=== PATIENT | female | born 1965 | race Caucasian/White ===

== ENCOUNTER 2016-07-26 11:46 | Day surgery (SDC) | payer OTHER ==
[2016-07-26] MEDS ORDERED: LACTATED RINGERS 1,000 ML IV ONE (11:56)
[2016-07-26] MEDS ORDERED: fentaNYL 250 MCG/5 ML VIAL IVP ONE (13:18)
[2016-07-26] MEDS ORDERED: MIDAZOLAM 2 MG/2 ML VIAL IVP ONE (13:18)
== END 2016-07-26 11:47 | disposition home or self-care (01) ==
PROC: 0DB68ZX Excision of Stomach, Via Natural or Artificial Opening Endoscopic, Diagnostic (ICD-10-PCS; principal; 2016-07-26 12:45)
DX: K92.0 Hematemesis (principal); K29.50 Unspecified chronic gastritis without bleeding; K21.9 Gastro-esophageal reflux disease without esophagitis; K44.9 Diaphragmatic hernia without obstruction or gangrene; E66.9 Obesity, unspecified; Z68.33 Body mass index [BMI] 33.0-33.9, adult; Z88.5 Allergy status to narcotic agent
CPT/HCPCS: 43239; J3010; J7120

== ENCOUNTER 2016-12-10 13:52 | Outpatient (CLI) | payer OTHER ==
--- NOTE | 2016-12-11 17:18 | Mammography Report ---
DIGITAL SCREENING MAMMOGRAM: 12/10/2016 CLINICAL INDICATION: A 51-year-old for screening. COMPARISON: 03/2012, 01/2008. TECHNIQUE: Routine CC and MLO projections were obtained of the breasts. FINDINGS: Parenchymal tissue within the breasts is predominantly fatty replaced. There are no domin ant masses, suspicious microcalcifications, or secondary signs of malignancy. In comparison to the p revious studies, there are no significant changes. IMPRESSION: NO MAMMOGRAPHIC EVIDENCE OF MALIGNANCY. NO SIGNIFICANT INTERVAL CHANGES. RECOMMENDATION: Screening mammography is recommended annually. BIRADS category 1 - negative. STANDARD QUALIFYING STATEMENTS 1. This examination was reviewed with the aid of Computed-Aided Detection (CAD). 2. A negative or benign imaging report should not delay biopsy if clinically suspicious findings are present. Consider surgical consultation if warranted. More than 5% of cancers are not identified b y imaging. 3. Dense breasts may obscure an underlying neoplasm. JOB #: [id number] EXT JOB #:[id number]
== END 2016-12-10 13:53 | disposition home or self-care (01) ==
LOC: DI.S 13:52
PROVIDERS: ATTEND Internal Medicine
DX: Z12.31 Encounter for screening mammogram for malignant neoplasm of breast (principal)
CPT/HCPCS: 77067

== ENCOUNTER 2017-10-29 12:37 | Outpatient (CLI) | payer OTHER ==
[2017-10-29 17:50] LABS: BASOPHILS % (AUTO) 0.2 %; EOSINOPHILS # (AUTO) 0.1 10^3/uL (0.0-0.7); EOSINOPHILS % (AUTO) 1.3 %; HGB - HEMOGLOBIN 14.2 g/dL (12.0-16.0); LYMPHOCYTES # (AUTO) 1.6 10^3/uL (1.5-3.5); LYMPHOCYTES % (AUTO) 37.7 %; MEAN CORPUSCULAR HEMOGLOBIN 30.7 pg (27.0-31.0); MEAN CORPUSCULAR HGB CONC 33.3 g/dL (32.0-36.0); MEAN CORPUSCULAR VOLUME 92.2 fL (81.0-99.0); MEAN PLATELET VOLUME 8.7 fL (7.9-10.8); MONOCYTES # (AUTO) 0.3 10^3/uL (0.0-1.0); MONOCYTES % (AUTO) 7.1 %; NEUTROPHILS # (AUTO) 2.2 10^3/uL (1.5-6.6); NEUTROPHILS % (AUTO) 53.7 %; PLT - PLATELET COUNT 238 10^3/uL (130-450); RED BLOOD COUNT 4.62 10^6/uL (4.20-5.40); RED CELL DISTRIBUTION WIDTH 13.4 % (12.0-15.0); WHITE BLOOD COUNT 4.1 x10^3/uL (4.8-10.8)
[2017-10-29 17:56] LABS: ALBUMIN/GLOBULIN RATIO 1.3 (1.0-2.2); BILIRUBIN,TOTAL 0.8 mg/dL (0.2-1.0); CALCIUM 8.9 mg/dL (8.5-10.3); CREATININE 0.9 mg/dL (0.4-1.0); TOTAL PROTEIN 7.2 g/dL (6.7-8.2)
[2017-10-29 18:07] LABS: THYROID STIMULATING HORMONE 0.76 uIU/mL (0.34-5.60)
[2017-10-29 18:40] LABS: HB2 TOTAL 15.5 g/dL; HEMOGLOBIN A1C 0.49 g/dL
== END 2017-10-29 12:38 | disposition home or self-care (01) ==
LOC: LAB.F 12:37
PROVIDERS: ATTEND Internal Medicine
DX: R53.83 Other fatigue (principal); R35.0 Frequency of micturition; R30.0 Dysuria; Z79.899 Other long term (current) drug therapy; Z12.11 Encounter for screening for malignant neoplasm of colon; Z12.12 Encounter for screening for malignant neoplasm of rectum
CPT/HCPCS: 36415; 80053; 82607; 83036; 84443; 85025

== ENCOUNTER 2019-06-24 10:54 | Outpatient (CLI) | payer OTHER ==
[2019-06-24 17:19] LABS: BASOPHILS % (AUTO) 0.8 %; EOSINOPHILS # (AUTO) 0.1 10^3/uL (0.0-0.7); EOSINOPHILS % (AUTO) 1.4 %; HGB - HEMOGLOBIN 13.4 g/dL (12.0-16.0); LYMPHOCYTES # (AUTO) 1.7 10^3/uL (1.5-3.5); LYMPHOCYTES % (AUTO) 47.1 %; MEAN CORPUSCULAR HEMOGLOBIN 28.8 pg (27.0-31.0); MEAN CORPUSCULAR HGB CONC 31.2 g/dL (32.0-36.0); MEAN CORPUSCULAR VOLUME 92.5 fL (81.0-99.0); MEAN PLATELET VOLUME 10.9 fL (7.9-10.8); MONOCYTES # (AUTO) 0.2 10^3/uL (0.0-1.0); MONOCYTES % (AUTO) 6.5 %; NEUTROPHILS # (AUTO) 1.6 10^3/uL (1.5-6.6); NEUTROPHILS % (AUTO) 43.9 %; PLT - PLATELET COUNT 237 10^3/uL (130-450); RED BLOOD COUNT 4.65 10^6/uL (4.20-5.40); RED CELL DISTRIBUTION WIDTH 12.5 % (12.0-15.0); WHITE BLOOD COUNT 3.7 x10^3/uL (4.8-10.8)
[2019-06-24 17:39] LABS: ALBUMIN 4.4 g/dL (3.2-5.5); ALBUMIN/GLOBULIN RATIO 1.6 (1.0-2.2); ALKALINE PHOSPHATASE 80 IU/L (42-121); ALT ALANINE AMINOTRANSFERASE 33 IU/L (10-60); AST ASPARTATE AMINOTRANSFERASE 27 IU/L (10-42); BILIRUBIN,TOTAL 0.7 mg/dL (0.2-1.0); BUN - BLOOD UREA NITROGEN 12 mg/dL (6-20); CALCIUM 9.1 mg/dL (8.5-10.3); CARBON DIOXIDE - CO2 27 mmol/L (21-32); CHLORIDE 107 mmol/L (101-111); CHOLESTEROL 244 mg/dL; GFR - MDRD 57 (>89); GLUCOSE 97 mg/dL (70-100); HDL CHOLESTEROL 61 mg/dL; LDL CHOLESTEROL,CALCULATED 163 mg/dL; LDL/HDL RATIO 2.7 (<4.4); SODIUM 140 mmol/L (135-145); TOTAL PROTEIN 7.2 g/dL (6.7-8.2); VLDL CHOLESTEROL 20 mg/dL
== END 2019-06-24 10:55 | disposition home or self-care (01) ==
LOC: LAB.S 10:54
PROVIDERS: ATTEND Nurse Practitioner
DX: K92.0 Hematemesis (principal); E78.5 Hyperlipidemia, unspecified; K21.9 Gastro-esophageal reflux disease without esophagitis; J45.909 Unspecified asthma, uncomplicated
CPT/HCPCS: 36415; 80053; 80061; 83721; 84443; 85025

== ENCOUNTER 2019-06-25 10:57 | Outpatient (CLI) | payer OTHER ==
--- NOTE | 2019-06-26 09:13 | Mammography Report ---
Reason: ROUTINE MAMMO Procedure Date: 06/25/2019 Accession Number: [id number] / [id number] Procedure: MGS - Screening Mammo Dig Bilat CPT Code: Final Report FULL RESULT: EXAM: Screening Mammo Dig Bilat DATE: 06/25/2019 11:12 AM CLINICAL HISTORY: Screening encounter. Family history of breast cancer in a maternal aunt at the age of 55. TECHNIQUE: (B) - Bilateral CC and MLO views were obtained. COMPARISON: 12/10/2016 and 04/10/2012. PARENCHYMAL PATTERN: (A) - The breast(s) demonstrate(s) scattered fibroglandular densities. FINDINGS: There are no suspicious masses, calcifications, or areas of distortion. IMPRESSION: Negative examination. BI-RADS category 1. RECOMMENDATION: (ANNUAL) - Recommend routine annual screening mammography. BI-RADS CATEGORY: (1) - Negative. STANDARD QUALIFYING STATEMENTS: 1. This examination was reviewed with the aid of Computer-Aided Detection (CAD). 2. A negative or benign imaging report should not preclude biopsy if clinically suspicious findings are present. 3. Dense breasts may obscure an underlying neoplasm. 4. This examination was reviewed without the aid of 3D breast imaging (tomosynthesis).
== END 2019-06-25 10:58 | disposition home or self-care (01) ==
LOC: DI.S 10:57
PROVIDERS: ATTEND Nurse Practitioner
DX: Z12.31 Encounter for screening mammogram for malignant neoplasm of breast (principal); Z80.3 Family history of malignant neoplasm of breast
CPT/HCPCS: 77067

== ENCOUNTER 2019-11-04 17:21 | Outpatient (CLI) | payer OTHER ==
[2019-11-04 20:41] LABS: ALBUMIN 4.2 g/dL (3.2-5.5); ALBUMIN/GLOBULIN RATIO 1.4 (1.0-2.2); BILIRUBIN,TOTAL 0.6 mg/dL (0.2-1.0); CALCIUM 8.9 mg/dL (8.5-10.3); TOTAL PROTEIN 7.3 g/dL (6.7-8.2)
== END 2019-11-04 17:22 | disposition home or self-care (01) ==
LOC: LAB.S 17:21
PROVIDERS: ATTEND Nurse Practitioner
DX: I10 Essential (primary) hypertension (principal)
CPT/HCPCS: 36415; 80053

== ENCOUNTER 2020-04-20 12:44 | Emergency (ER) | payer OTHER ==
--- NOTE | 2020-04-20 12:50 | ED Physician Documentation ---
PD HPI UPPER EXT INJURY - Stated complaint Stated Complaint: LFT ARM SORENESS, DR OFC SENT - History obtained from History obtained from: Patient PD PAST MEDICAL HISTORY - Past Medical History Cardiovascular: Other Respiratory: Asthma Endocrine/Autoimmune: None GI: GERD, Ulcers, Hemorrhoids : Frequency HEENT: Glaucoma Psych: None Musculoskeletal: None Derm: None - Past Surgical History General: Colonoscopy /CLINICAL LAB CLERK: section - Present Medications Home Medications: Ambulatory Orders Medication Instructions Recorded Confirmed Soy Isofla/Blk Cohosh/Mag Bark 155 mg PO DAILY 11/22/14 04/20/20 [Estroven 155 mg Capsule] Amitriptyline [Elavil] 2 tab PO HS 07/25/16 04/20/20 Pentosan Polysulfate Sodium 100 mg PO TID 07/25/16 04/20/20 [Elmiron] Dicyclomine [Bentyl] 10 mg PO QID PRN #10 capsule 04/20/20 Famotidine [Acid-Pep] 20 mg BID 04/20/20 04/20/20 HYDROcod/ACETAM 5/325 [[place] 5/325] 1 ea PO Q6H PRN #10 tablet 04/20/20 Hyoscyamine [Levsin] 0.125 mg DAILY 04/20/20 04/20/20 Losartan Potassium [Cozaar] 100 mg DAILY 04/20/20 04/20/20 Magnesium Oxide [Magnesium] 400 mg DAILY 04/20/20 04/20/20 Ondansetron Odt [Zofran] 4 mg TL Q6H PRN #10 tablet 04/20/20 hydroCHLOROthiazide [Hydrodiuril] 25 mg DAILY 04/20/20 04/20/20 - Allergies Allergies/Adverse Reactions: Allergies Allergy/AdvReac Type Severity Reaction Status Date / Time codeine AdvReac Severe Itching Verified 04/20/20 12:56 Results - Vitals Vitals: Vital Signs - 24 hr 04/20/20 12:49 Temperature 36.8 C Heart Rate 84 Respiratory 19 Rate Blood Pressure 147/88 H O2 Saturation 100 Oxygen O2 Source Room air - Labs Labs: Laboratory Tests 04/20/20 04/20/20 04/20/20 13:04 13:04 13:04 WBC 4.4 L RBC 4.35 Hgb 13.2 Hct 40.6 MCV 93.3 MCH 30.3 MCHC 32.5 RDW 12.3 Plt Count 235 MPV 9.1 Neut # (Auto) 1.9 Lymph # (Auto) 2.1 [place] # (Auto) 0.3 Eos # (Auto) 0.1 Baso # (Auto) 0.0 Absolute Nucleated RBC 0.00 Nucleated RBC % 0.0 Sodium 141 Potassium 3.6 Chloride 98 L Carbon Dioxide 28 Anion Gap 15.0 H BUN 13 Creatinine 1.0 Estimated GFR (MDRD) 57 L Glucose 95 Calcium 9.7 Total Bilirubin 1.0 AST 29 ALT 29 Alkaline Phosphatase 85 Troponin I High Sens < 2.3 L Total Protein 7.4 Albumin 4.6 Globulin 2.8 Albumin/Globulin Ratio 1.6 Lipase 37 Departure - Departure Disposition: 01 Home, Self Care Clinical Impression: Chest pain at rest, Biliary colic Clinical Impression: (Ruled Out): Myocardial infarction Condition: Stable Record reviewed to determine appropriate education?: Yes Instructions: ED Chest Pain Atypical Unkn Cause Follow-Up: Heena Troncoso ARNP, BLOOD BANK BOOKING CLERK-C [Primary Care Provider] - Prescriptions: Dicyclomine [Bentyl] 10 mg PO QID PRN #10 capsule PRN Reason: Abdominal Pain HYDROcod/ACETAM 5/325 [[place] 5/325] 1 ea PO Q6H PRN #10 tablet PRN Reason: Pain Ondansetron Odt [Zofran] 4 mg TL Q6H PRN #10 tablet PRN Reason: Nausea / Vomiting Comments: Your EKG, chest x-ray, blood tests are normal. No signs of heart attack or heart injury nor any pneumonia, fluid around the lung, collapsed lung. Also no signs of acute inflammation of the pancreas or liver. Possibilities could be musculoskeletal pain and so some anti-inflammatories such as ibuprofen or Tylenol may be helpful. Consider the possibility of gallbladder spasm that could account for the episode of pain yesterday and earlier in the month. For any further episodes, you could use mild medicines such as ibuprofen or Tylenol or add stronger pain medicine of dicyclomine antispasmodic for the gallbladder and hydrocodone pain medicine if needed. Ondansetron if needed for nausea. These medicines would be to try if you get another episode. If you have recurrent episodes further, then follow-up with your primary care with regard to any further testing of the gallbladder to see if it is over-spasming.
[2020-04-20 13:12] LABS: BASOPHILS % (AUTO) 0.9 %; EOSINOPHILS # (AUTO) 0.1 10^3/uL (0.0-0.7); EOSINOPHILS % (AUTO) 1.6 %; HGB - HEMOGLOBIN 13.2 g/dL (12.0-16.0); LYMPHOCYTES # (AUTO) 2.1 10^3/uL (1.5-3.5); LYMPHOCYTES % (AUTO) 47.1 %; MEAN CORPUSCULAR HEMOGLOBIN 30.3 pg (27.0-31.0); MEAN CORPUSCULAR HGB CONC 32.5 g/dL (32.0-36.0); MEAN CORPUSCULAR VOLUME 93.3 fL (81.0-99.0); MEAN PLATELET VOLUME 9.1 fL (7.9-10.8); MONOCYTES # (AUTO) 0.3 10^3/uL (0.0-1.0); MONOCYTES % (AUTO) 7.4 %; NEUTROPHILS # (AUTO) 1.9 10^3/uL (1.5-6.6); NEUTROPHILS % (AUTO) 42.8 %; PLT - PLATELET COUNT 235 10^3/uL (130-450); RED BLOOD COUNT 4.35 10^6/uL (4.20-5.40); RED CELL DISTRIBUTION WIDTH 12.3 % (12.0-15.0); WHITE BLOOD COUNT 4.4 x10^3/uL (4.8-10.8)
--- NOTE | 2020-04-20 13:22 | XRAY Report ---
PROCEDURE: Chest 1 View X-Ray INDICATIONS: Chest pain TECHNIQUE: One view of the chest was acquired. COMPARISON: None FINDINGS: Surgical changes and devices: None. Lungs and pleura: No pleural effusions or pneumothorax. Lungs are clear. Mediastinum: Mediastinal contours appear normal. Heart size is normal. Bones and chest wall: No suspicious bony lesions. Overlying soft tissues appear unremarkable. IMPRESSION: No acute cardiopulmonary pathology. Reviewed by: Yonatan Voss MD on 04/20/2020 1:21 PM PST Approved by: Yonatan Voss MD on 04/20/2020 1:21 PM PST Station ID: [id number]
[2020-04-20 13:26] LABS: ALBUMIN 4.6 g/dL (3.2-5.5); ALBUMIN/GLOBULIN RATIO 1.6 (1.0-2.2); CALCIUM 9.7 mg/dL (8.5-10.3); TOTAL PROTEIN 7.4 g/dL (6.7-8.2)
[2020-04-20 14:48] VITALS: BP 128/69
--- NOTE | 2020-04-20 21:05 | ED Physician Documentation ---
PD HPI CHEST PAIN - Stated complaint Stated Complaint: LFT ARM SORENESS, DR OFC SENT - Chief complaint Chief Complaint: Cardiac - History of Present Illness Timing - onset: Yesterday (she was rested yesterday afternoon and had abrupt onset substernal pain/pressure, associated with nausea. Pain went to back and to left shoulder. Lasted couple hours and slowly resolved.) Timing - onset during: Light activity (was at grocery store. No heavy lifting nor activity.) Timing - duration: Hours Timing - details: Abrupt onset, Now resolved Quality: Pressure, Tightness Location: Substernal Radiation: Back, Left upper extremity. No: Jaw, Neck Worsened by: No: Exertion, Inspiration, Movement, Palpation Associated symptoms: Diaphoresis, Nausea, Feeling faint / dizzy. No: Shortness of air, General Weakness, Palpitations Similar symptoms before: No diagnosis (epigastric pain lasted an hour or so a few weeks ago, without interval symptoms except occasional brief symptoms of nausea lasting few minutes. She is active and does lot of walking, brisk activity and has not had any exertional CP nor dyspnea.) Recently seen: Not recently seen Review of Systems Constitutional: denies: Fever, Chills Nose: denies: Rhinorrhea / runny nose, Congestion Throat: denies: Sore throat Cardiac: reports: Chest pain / pressure (see HPI). denies: Palpitations, Pedal edema, Calf pain Respiratory: denies: Dyspnea, Cough GI: denies: Nausea, Vomiting, Diarrhea, Bloody / black stool Musculoskeletal: denies: Extremity swelling PD PAST MEDICAL HISTORY - Past Medical History Past Medical History: Yes Cardiovascular: Hypertension, Other Respiratory: Asthma Endocrine/Autoimmune: None GI: GERD, Ulcers, Hemorrhoids, Cholelithiasis (incidental finding on xray in the recent past. ) : Frequency HEENT: Glaucoma Psych: None Musculoskeletal: None Derm: None Other Past Medical History: esophageal hernia - Past Surgical History Past Surgical History: Yes General: Colonoscopy /LPN CMA: section - Present Medications Home Medications: Ambulatory Orders Medication Instructions Recorded Confirmed Soy Isofla/Blk Cohosh/Mag Bark 155 mg PO DAILY 11/22/14 04/20/20 [Estroven 155 mg Capsule] Amitriptyline [Elavil] 2 tab PO HS 07/25/16 04/20/20 Pentosan Polysulfate Sodium 100 mg PO TID 07/25/16 04/20/20 [Elmiron] Dicyclomine [Bentyl] 10 mg PO QID PRN #10 capsule 04/20/20 Famotidine [Acid-Pep] 20 mg BID 04/20/20 04/20/20 HYDROcod/ACETAM 5/325 [[place] 5/325] 1 ea PO Q6H PRN #10 tablet 04/20/20 Hyoscyamine [Levsin] 0.125 mg DAILY 04/20/20 04/20/20 Losartan Potassium [Cozaar] 100 mg DAILY 04/20/20 04/20/20 Magnesium Oxide [Magnesium] 400 mg DAILY 04/20/20 04/20/20 Ondansetron Odt [Zofran] 4 mg TL Q6H PRN #10 tablet 04/20/20 hydroCHLOROthiazide [Hydrodiuril] 25 mg DAILY 04/20/20 04/20/20 - Allergies Allergies/Adverse Reactions: Allergies Allergy/AdvReac Type Severity Reaction Status Date / Time codeine AdvReac Severe Itching Verified 04/20/20 12:56 - Social History Does the pt smoke?: No Smoking Status: Never smoker Does the pt have substance abuse?: No PD ED PE NORMAL - Vitals Vital signs reviewed: Yes - General General: Alert and oriented X 3, No acute distress, Well developed/nourished - Neck Neck: Supple, no meningeal sign, No adenopathy - Cardiac Cardiac: RRR, No murmur, No rub - Respiratory Respiratory: Clear bilaterally, Other (no chestwall tenderness) - Abdomen Abdomen: Soft, Non tender - Back Back: No CVA TTP Results - Vitals Vitals: Vital Signs - 24 hr 04/20/20 04/20/20 04/20/20 12:49 13:30 14:00 Temperature 36.8 C Heart Rate 84 74 71 Respiratory 19 18 17 Rate Blood Pressure 147/88 H 129/74 128/69 O2 Saturation 100 98 98 Oxygen O2 Source Room air - EKG (time done) 12:54 Rate: Rate (enter#) (75) Rhythm: NSR Kimball: Normal Intervals: Normal ID, Other (PVCs noted) QRS: Normal Ischemia: Normal ST segments. No: ST elevation c/w ischemia, ST depression - Labs Labs: Laboratory Tests 04/20/20 04/20/20 04/20/20 13:04 13:04 13:04 WBC 4.4 L RBC 4.35 Hgb 13.2 Hct 40.6 MCV 93.3 MCH 30.3 MCHC 32.5 RDW 12.3 Plt Count 235 MPV 9.1 Neut # (Auto) 1.9 Lymph # (Auto) 2.1 [place] # (Auto) 0.3 Eos # (Auto) 0.1 Baso # (Auto) 0.0 Absolute Nucleated RBC 0.00 Nucleated RBC % 0.0 Sodium 141 Potassium 3.6 Chloride 98 L Carbon Dioxide 28 Anion Gap 15.0 H BUN 13 Creatinine 1.0 Estimated GFR (MDRD) 57 L Glucose 95 Calcium 9.7 Total Bilirubin 1.0 AST 29 ALT 29 Alkaline Phosphatase 85 Troponin I High Sens < 2.3 L Total Protein 7.4 Albumin 4.6 Globulin 2.8 Albumin/Globulin Ratio 1.6 Lipase 37 - Rads (name of study) chest xray Radiology: Prelim report reviewed (no acute process), See rad report PD MEDICAL DECISION MAKING - ED course Complexity details: reviewed results, considered differential (sounds less AK, but can do ECG and Trop to ensure. Given symptoms from yesterday, a single troponin would be conclusive for AMI. Her symptoms episode seems concerning for biliary colic. ), d/w patient Departure - Departure Disposition: 01 Home, Self Care Clinical Impression: Chest pain at rest, Biliary colic Condition: Stable Instructions: ED Chest Pain Atypical Unkn Cause Follow-Up: Heena Troncoso ARNP, MOTORCYCLE DESIGNER-C [Primary Care Provider] - Prescriptions: Dicyclomine [Bentyl] 10 mg PO QID PRN #10 capsule PRN Reason: Abdominal Pain HYDROcod/ACETAM 5/325 [[place] 5/325] 1 ea PO Q6H PRN #10 tablet PRN Reason: Pain Ondansetron Odt [Zofran] 4 mg TL Q6H PRN #10 tablet PRN Reason: Nausea / Vomiting Comments: Your EKG, chest x-ray, blood tests are normal. No signs of heart attack or heart injury nor any pneumonia, fluid around the lung, collapsed lung. Also no signs of acute inflammation of the pancreas or liver. Possibilities could be musculoskeletal pain and so some anti-inflammatories such as ibuprofen or Tylenol may be helpful. Consider the possibility of gallbladder spasm that could account for the episode of pain yesterday and earlier in the month. For any further episodes, you could use mild medicines such as ibuprofen or Tylenol or add stronger pain medicine of dicyclomine antispasmodic for the gallbladder and hydrocodone pain medicine if needed. Ondansetron if needed for nausea. These medicines would be to try if you get another episode. If you have recurrent episodes further, then follow-up with your primary care with regard to any further testing of the gallbladder to see if it is over-spasming. Discharge Date/Time: 04/20/20 14:12
== END 2020-04-20 14:12 | disposition home or self-care (01) ==
LOC: ED 12:44
DX: R07.89 Other chest pain (principal); K80.20 Calculus of gallbladder without cholecystitis without obstruction; I49.3 Ventricular premature depolarization; I10 Essential (primary) hypertension
CPT/HCPCS: 36415; 80053; 83690; 84484; 85025; 93005; 99284

== ENCOUNTER 2020-04-27 21:04 | Outpatient (CLI) | payer OTHER ==
--- OUTSIDE RECORDS SUMMARY | 2020-05-04 00:54 | EXTERNAL MEDICAL SUMMARY RPT | Continuity of Care Document ---
:1965 Demographics Phone Unavailable Preferred Language Bermudian Marital Status Unknown Catholic Affiliation Unknown Race Unknown Ethnic Group Unknown Author Organization [facility] Address [address] [phone] Phone Care Team Providers Name Role Phone Aba Unavailable Unavailable FABRIC AND TEXTILE FACTORY WORKER Unavailable Unavailable Dannhauer Unavailable Unavailable Problems date description facility 2016-07-26 11:46 OBESITY, UNSPECIFIED [facility] 2016-07-26 11:46 [facility]AL [facility] DISEASE WITHOUT ESOPHAGITIS 2016-07-26 11:46 UNSPECIFIED CHRONIC GASTRITIS [facility] WITHOUT BLEEDING 2016-07-26 11:46 DIAPHRAGMATIC HERNIA WITHOUT [facility] OBSTRUCTION OR GANGRENE 2016-07-26 11:46 HEMATEMESIS [facility] 2016-07-26 11:46 BODY MASS INDEX (BMI) [facility] 33.0-33.9, ADULT 2016-07-26 11:46 ALLERGY STATUS TO NARCOTIC [facility] AGENT STATUS 2016-12-10 13:52 ENCNTR SCREEN MAMMOGRAM FOR [facility] MALIGNANT NEOPLASM OF BREAST 2017-10-29 12:37 DYSURIA [facility] 2017-10-29 12:37 FREQUENCY OF [facility]URITION [facility] 2017-10-29 12:37 OTHER FATIGUE [facility] 2017-10-29 12:37 ENCOUNTER FOR SCREENING FOR [facility] MALIGNANT NEOPLASM OF COLON 2017-10-29 12:37 ENCOUNTER FOR SCREENING FOR [facility] MALIGNANT NEOPLASM OF RECTUM 2017-10-29 12:37 OTHER MANAGING JEWELER (CURRENT) [facility] THERAPY 2019-06-24 10:54 HYPERLIPIDEMIA, UNSPECIFIED [facility] 2019-06-24 10:54 UNSPECIFIED ASTHMA, [facility] UNCOMPLICATED 2019-06-24 10:54 GASTRO-ESOPHAGEAL REFLUX [facility] DISEASE WITHOUT ESOPHAGITIS 2019-06-24 10:54 HEMATEMESIS [facility] 2019-06-25 10:57 ENCNTR SCREEN MAMMOGRAM FOR [facility] MALIGNANT NEOPLASM OF BREAST 2019-06-25 10:57 FAMILY HISTORY OF MALIGNANT [facility] NEOPLASM OF BREAST 2019-11-04 17:21 ESSENTIAL (PRIMARY) [facility] HYPERTENSION 2020-04-20 12:44 VENTRICULAR PREMATURE [facility] DEPOLARIZATION 2020-04-20 12:44 [facility] [place] [facility]/O OBST 2020-04-20 12:44 OTHER CHEST PAIN [facility] 2020-04-20 12:44 ESSENTIAL (PRIMARY) [facility] HYPERTENSION 2020-04-20 12:44 CALCULUS OF GALLBLADDER W/O [facility] CHOLECYSTITIS W/O OBSTRUCTION 2020-04-21 00:00:00 Calculus of gallbladder without idb [facility] mention of cholecystitis, [facility] without mention of obstruction 2020-04-21 00:00:00 [facility] 2020-04-21 00:00:00 Calculus of gallbladder without [facility] cholecystitis without [facility] obstruction 2020-04-21 00:00:00 [facility] 2020-04-21 00:00:00 [facility] 2020-04-27 21:04 CONTACT WITH AND (SUSPECTED) [facility] EXPOSURE TO COVID-19 Allergies date description facility NO ALLERGY INFORMATION AVAILABLE [facility] PENICILLINS [facility] SULFAMETHOXAZOLE-TRIMETHOPRIM [facility] codeine [facility] MEPERIDINE [facility] NO KNOWN ENVIRONMENTAL ALLERGIES [facility] NO KNOWN ALLERGIES [facility] NO KNOWN ALLERGIES [facility] BUPROPION HCL [facility] Medications date description facility 2020-04-20 00:00:00 null [facility] 2020-04-20 00:00:00 null [facility] 2020-04-20 00:00:00 null [facility] 2020-04-20 00:00:00 null [facility] 2020-04-20 00:00:00 null [facility] 2020-04-20 00:00:00 null [facility] 2020-04-20 00:00:00 DICYCLOMINE HCL [facility] 2020-04-20 00:00:00 ONDANSETRON [facility] 2020-04-20 00:00:00 HYDROCODONE-ACETAMINOPHEN [facility] 2020-04-20 00:00:00 ONDANSETRON [facility] 2020-04-20 00:00:00 HYDROCODONE-ACETAMINOPHEN [facility] 2020-04-20 00:00:00 DICYCLOMINE HCL [facility] Procedures date description facility 2020-02-15 00:00:00 [facility] date description facility 2020-02-15 00:00:00 [facility] Results Social History date description facility [id number]
== END 2020-04-27 21:05 | disposition home or self-care (01) ==
LOC: COV 21:04
PROVIDERS: ATTEND Family Medicine
DX: Z20.822 Contact with and (suspected) exposure to COVID-19 (principal)

== ENCOUNTER 2020-08-23 13:11 | Outpatient (CLI) | payer OTHER ==
--- NOTE | 2020-08-24 12:16 | Mammography Report ---
BILATERAL DIGITAL SCREENING MAMMOGRAM 3D/2D: 08/23/2020 CLINICAL: Family history of breast cancer. Comparison is made to exams dated: 12/10/2016 mammogram and 06/25/2019 mammogram - [facility]. There are scattered fibroglandular elements in both breasts. No significant masses, calcifications, or other findings are seen in either breast. There has been no significant interval change. IMPRESSION: NEGATIVE There is no mammographic evidence of malignancy. A 1 year screening mammogram is recommended. This exam was interpreted at Station ID: [id number]. NOTE: For mammograms, a report in lay terms will be sent to the patient. Approximately 15% of breast malignancies will not be visualized mammographically. In the management of a palpable breast mass, a negative mammogram must not discourage biopsy of a clinically suspicious lesion. Electronically Signed By: Gumaro Caldwell M.D. aty/penrad:08/23/2020 13:58:43 ACR BI-RADS Category 1: Negative [id number] PARENCHYMAL PATTERN: (A) - The breast(s) demonstrate(s) scattered fibroglandular densities. BI-RADS CATEGORY: (1) - 1 RECOMMENDATION: (ANNUAL) - Recommend routine annual screening mammography. [id number] 1 year screening LATERALITY: (B)
== END 2020-08-23 13:12 | disposition home or self-care (01) ==
LOC: DI.S 13:11
PROVIDERS: ATTEND Family Medicine
DX: Z12.31 Encounter for screening mammogram for malignant neoplasm of breast (principal); Z80.3 Family history of malignant neoplasm of breast

== ENCOUNTER 2020-10-04 09:46 | Outpatient (CLI) | payer OTHER ==
[2020-10-04 15:10] LABS: HCT - HEMATOCRIT 39.9 % (37.0-47.0); LYMPHOCYTES # (AUTO) 1.7 10^3/uL (1.5-3.5); LYMPHOCYTES % (AUTO) 42.6 %; MEAN CORPUSCULAR HEMOGLOBIN 30.4 pg (27.0-31.0); MEAN CORPUSCULAR HGB CONC 32.6 g/dL (32.0-36.0); MEAN CORPUSCULAR VOLUME 93.4 fL (81.0-99.0); MEAN PLATELET VOLUME 10.5 fL (7.9-10.8); MONOCYTES # (AUTO) 0.3 10^3/uL (0.0-1.0); MONOCYTES % (AUTO) 6.8 %; NEUTROPHILS # (AUTO) 1.9 10^3/uL (1.5-6.6); NEUTROPHILS % (AUTO) 48.1 %; PLT - PLATELET COUNT 252 10^3/uL (130-450); RED BLOOD COUNT 4.27 10^6/uL (4.20-5.40); RED CELL DISTRIBUTION WIDTH 12.4 % (12.0-15.0)
[2020-10-04 15:29] LABS: ALBUMIN 4.4 g/dL (3.2-5.5); ALBUMIN/GLOBULIN RATIO 1.5 (1.0-2.2); ALKALINE PHOSPHATASE 83 IU/L (42-121); ALT ALANINE AMINOTRANSFERASE 34 IU/L (10-60); AST ASPARTATE AMINOTRANSFERASE 30 IU/L (10-42); BILIRUBIN,TOTAL 0.9 mg/dL (0.2-1.0); BUN - BLOOD UREA NITROGEN 18 mg/dL (6-20); CALCIUM 9.5 mg/dL (8.5-10.3); CARBON DIOXIDE - CO2 28 mmol/L (21-32); CHLORIDE 104 mmol/L (101-111); CHOL/HDL RATIO 3.7 (<4.4); CHOLESTEROL 244 mg/dL; GFR - MDRD 57 (>89); GLUCOSE 97 mg/dL (70-100); HDL CHOLESTEROL 66 mg/dL; LDL CHOLESTEROL,CALCULATED 145 mg/dL; LDL/HDL RATIO 2.2 (<4.4); SODIUM 141 mmol/L (135-145); TOTAL PROTEIN 7.4 g/dL (6.7-8.2); TRIGLYCERIDES 164 mg/dL; VLDL CHOLESTEROL 33 mg/dL
[2020-10-04 15:34] LABS: THYROID STIMULATING HORMONE 1.36 uIU/mL (0.34-5.60)
== END 2020-10-04 09:47 | disposition home or self-care (01) ==
LOC: LAB.S 09:46
PROVIDERS: ATTEND Registered Nurse
DX: Z00.00 Encounter for general adult medical examination without abnormal findings (principal); Z79.899 Other long term (current) drug therapy; I10 Essential (primary) hypertension; E78.5 Hyperlipidemia, unspecified; K21.9 Gastro-esophageal reflux disease without esophagitis
CPT/HCPCS: 36415; 80053; 80061; 83721; 84443; 85025

== ENCOUNTER 2020-11-29 14:12 | Outpatient (CLI) | payer OTHER ==
[2020-11-29 15:08] VITALS: BP 113/80
--- NOTE | 2020-11-29 15:08 | SLEEP CARE CONSULTATION ---
Information from patient questionnaire entered by Meghan Blackburn. I have reviewed and concur with the information entered by Meghan Blackburn. This document represents the service I personally performed and the decisions made by me, Ashley Cisse ARNP. History of Present Illness Service Date and Time: 11/29/2020 1412 Reason for Visit: New patient Chief Complaint: reports: Snoring, Observed pauses in breathing, Frequent awakenings at night Date of Onset: 15 years Usual bedtime: 11:30 pm Time it takes to fall asleep: 10 minutes Snores at night: Yes Observed to quit breathing while asleep: Yes (by late ) Number of times waking at night: 6 (minimum twice on average) Reasons for waking at night: reports: Snoring, Bathroom. denies: Choking, Gasping for air Toss, Turn, or Twitch while sleeping: Yes Recalls having dreams: Yes (sometimes) Usually gets out of bed at: 8:30 am Feels refreshed in the morning: Yes Morning headache: No Sleepy or fatigued during the day: No Ever fallen asleep while driving: No Takes day naps: No Dreams during day naps: No Prior sleep studies: No Additional HPI information: I had the pleasure of seeing ZAYRA MELENDREZ today regarding the possibility of her having a sleep disorder. Her current complaints are frequent night awakenings and snoring. She was discussing weight loss with PCP and was recommended she have a sleep study. She does feel rested most days when she wakes up in the morning. She states her late that she had stopped breathing and would wake her up. She does snore and her children say it is really loud at times. She does occasionally wake up with a sore throat. She does wake up due to bladder cystitis that gets her up to use bathroom at night. She has a bladder implant that has reduced this. She has woken herself up snoring. She denies waking up choking or gasping for air. 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 Patient is / and lives in [place]. Have you smoked in the past 12 months: No Alcohol use: Yes Alcohol amount and frequency: 1-2 drinks once a month Caffeine use: No Family History Family history of sleep disordered breathing: No Family Hx Sleep Apnea: Mother: Snoring Allergies and Home Medications Drug allergies reviewed: Yes (codeine) Home medication list reviewed: Yes Allergy and home medication list: Amitriptyline Pantoprazole Losartan Hydrochlorot Hydrocyamine sup Metformin magnesium Estroven Tums as needed Review of Systems Weight loss over past 5 years: 10 Cardiovascular: reports: high blood pressure, palpitations Gastrointestinal: reports: heartburn Urinary: reports: frequency, urgency Ear/Nose/Throat: reports: sinus problems, wisdom teeth removed. denies: tonsillectomy Immunologic: reports: allergies to food or environment (mold, beef, pork, dust, potatoes, corn ) Physical Exam Blood Pressure: 113/80 Cuff size: wrist Heart Rate: 69 O2 Saturation: 90 Height: 5 ft 6 in Weight: 217 lb Body Mass Index: 35.0 BMI Classification: Obese Neck circumference: 14 (inches) Mouth and throat: narrow oropharynx Soft palate: long Hard palate: normal Uvula: normal Uvula visualization: 100% Mallampati Class I Tongue: enlarged in size with teeth marshall on lateral edges Tonsils: small Neck: normal w/o lymphadenopathy or thyromegaly Heart: regular rate and rhythm Lungs: clear bilaterally Impression and Plan 1. Suspected Obstructive Sleep Apnea-Hypopnea Syndrome, as suggested by a history of loud and irregular snoring, observed cessation of breath while asleep, frequent awakening during the night, and cognitive impairment. Narrow oropharynx and obesity are common predisposing factors for obstructive sleep apnea-hypopnea syndrome. I recommend proceeding to polysomnography to confirm the diagnosis and to assess severity. If the patient has significant sleep disordered breathing, a manual CPAP titration study will also be performed to find the optimal treatment pressure. I informed the patient of what the sleep studies involve and after some discussion, obtained agreement to proceed. The pathophysiology of obstructive sleep apnea-hypopnea syndrome was discussed with the patient and health risks of cardiovascular and cerebrovascular disease if not treated. AASM brochure for obstructive sleep apnea-hypopnea syndrome given and reviewed. Risks of drowsy driving discussed in detail and patient advised to avoid long distance driving and to pull out operator at the first sign of drowsiness. Patient agreed to plan. * Schedule polysomnography +- manual CPAP titration study and return in 1-2 weeks after the study to discuss result and initiate therapy. * Avoid long distance driving or driving when feeling sleepy. * Avoid alcohol, sedative and muscle relaxant around bedtime. * Attempt to lose weight. * Review instructions provided by trained office staff on how to prepare for the sleep study. * Return for follow-up after sleep study completed. Counseling Topics: Weight loss health impact Visit Type: In Office Time Spent with Patient (minutes): 34 Provider Statement: I spent 100% of the Face to Face Visit with the patient with greater than 50% spent counseling the patient and coordination of care.
== END 2020-11-29 14:13 | disposition home or self-care (01) ==
LOC: SC 14:12
PROVIDERS: ATTEND Nurse Practitioner Family
DX: R06.81 Apnea, not elsewhere classified (principal); G47.8 Other sleep disorders; R41.89 Other symptoms and signs involving cognitive functions and awareness; R06.83 Snoring; E66.9 Obesity, unspecified; Z68.35 Body mass index [BMI] 35.0-35.9, adult
CPT/HCPCS: 99203; 99212

== ENCOUNTER 2020-12-02 08:03 | Outpatient (CLI) | payer OTHER | END 2020-12-02 08:04 | disposition home or self-care (01) | LOC: SC 08:03 | PROVIDERS: ATTEND Nurse Practitioner Family | DX: G47.33 Obstructive sleep apnea (adult) (pediatric) (principal); R09.02 Hypoxemia | CPT/HCPCS: 95806 ==

== ENCOUNTER 2020-12-28 15:07 | Outpatient (CLI) | payer OTHER ==
--- NOTE | 2020-12-28 15:26 | SLEEP CARE CONSULTATION ---
Information from patient questionnaire entered by Meghan Blackburn. I have reviewed and concur with the information entered by Meghan Blackburn. This document represents the service I personally performed and the decisions made by , Ashley Cisse ARNP. History of Present Illness Service Date and Time: 12/28/2020 1507 Initial Peak Sleepiness Scale score: 6 (in 2020) Current Peak Sleepiness Scale score: 2 Additional HPI information: ZAYRA MELENDREZ returns for follow up and results of the recently performed home sleep study. I explained the pathophysiology behind obstructive sleep apnea. We then spent quite a bit of time discussing different treatment options. For mild obstructive sleep apnea, surgery and oral appliance are alternatives to nasal CPAP therapy but in moderate or severe cases, nasal CPAP is the most effective and reliable treatment. Because apnea is primarily in supine position, then positional management therapy could be effective. Methods discussed such as positioning with pillows, using a T-shirt with tennis balls in the back, and shown commercial products that have a pillow format on back to prevent supine sleep. I reviewed the impact of weight changes on sleep apnea and strongly recommended losing weight. Patient was cautioned about risks of drowsy driving until sleepiness symptoms resolve. Sleep Study - Results Type of Sleep Study: Home sleep study Prior sleep studies: No Polysomnography/Home Sleep Study results: Physician Impression: The quality of the study is good. The length of the study is adequate (> 240 minutes). Please also see the tabulated and graphic data. 1. Obstructive Sleep Apnea-Hypopnea (ICD-10 G47.33), moderate, with an AHI of 15.2/hr and savanna SaO2 of 79%. During the study, the patient had 81 apneas (81 obstructive, 0 central, 0 mixed) and 67 hypopneas. The longest episode lasted 102.0 seconds. The respiratory events occurred more frequently during supine sleep (supine AHI was 19.3 and non-supine, 7.27). 2. Hypoxemia (ICD-10 R09.02), moderate, with the lowest oxygen saturation of 79 % and 5.5 minutes with SaO2 under 90%. Baseline oxygen saturation was normal (Average oxygen saturation was 94%). Allergies and Home Medications Home medication list reviewed: Yes (no changes) Review of Systems Review of systems same as previous: Yes (no changes) Physical Exam Heart Rate: 77 O2 Saturation: 95 Height: 5 ft 6 in Weight: 218 lb Body Mass Index: 35.2 BMI Classification: Obese Impression and Plan 1. Obstructive Sleep Apnea-Hypopnea Syndrome, moderate, with lowest oxygen saturation of 79%. Obviously this is the cause of the patients symptoms of unrefreshed sleep, and excessive daytime sleepiness. Positive pressure therapy could benefit hypertension, arrhythmia and gastric reflux. The patient has chose to try an oral appliance to treat their apnea. A 3 month follow up will be made to see if appliance has reduced symptoms. If so, another polysomnography will be ordered with use of the oral appliance to check efficacy in reducing apnea. Until patient is able to use the oral appliance, positional therapy is advised to avoid supine sleep with pillow positioning because apnea is more severe supine. 2. Hypoxemia, moderate, with the lowest oxygen saturation of 79 % and 5.5 minutes with SaO2 under 90%. Her baseline oxygen saturation was normal with an average oxygen saturation of 94%. * Oral appliance * Attempt to lose weight. * Avoid supine sleep until using oral appliance * The patient is again cautioned about driving until sleepiness completely resolves. * Return in about 3 months. I will assess response to therapy at that time. Counseling Topics: Sleeping position, Weight loss health impact Visit Type: In Office Time Spent with Patient (minutes): 14 Provider Statement: I spent 100% of the Face to Face Visit with the patient with greater than 50% spent counseling the patient and coordination of care.
== END 2020-12-28 15:08 | disposition home or self-care (01) ==
LOC: SC 15:07
PROVIDERS: ATTEND Nurse Practitioner Family
DX: G47.33 Obstructive sleep apnea (adult) (pediatric) (principal); R09.02 Hypoxemia; E66.9 Obesity, unspecified; Z68.35 Body mass index [BMI] 35.0-35.9, adult
CPT/HCPCS: 99212

== ENCOUNTER 2021-01-09 14:16 | Outpatient (CLI) | payer OTHER ==
--- NOTE | 2021-01-09 16:08 | DEXA Report ---
PROCEDURE: Dexa Spine and/or Hip INDICATIONS: POST MENOPAUSAL TECHNIQUE: Dual energy x-ray absorptiometry (DXA) was performed on a [employer] System. Regions measur ed are the AP Spine, femoral neck, and if needed forearm. COMPARISON: None. FINDINGS: Lumbar Spine: Bone Mineral Density 1.419 g/cm/cm,T score 2.0, normal Left Hip: Bone Mineral Density 1.179 g/cm/cm,T score 1.4, normal Left Femoral Neck: Bone Mineral Density 1.071 g/cm/cm, T score 0.2, normal (T score greater or equal to -1.0: NORMAL) (T score from -1.1 to -2.4: OSTEOPENIA) (T score less than or equal to -2.5 to: OSTEOPOROSIS) Impression: Normal bone mineral density. Patients with diagnosis of osteoporosis or osteopenia should have regular bone mineral density assess ment. For those eligible for Medicare, routine testing is allowed once every 2 years. Testing frequ ency can be increased for patients who have rapidly progressing disease or for those who are receivin g medical therapy to restore bone mass. Reviewed by: Doreen Portillo MD on 01/09/2021 4:06 PM PDT Approved by: Doreen Portillo MD on 01/09/2021 4:06 PM PDT Station ID: [id number]
== END 2021-01-09 14:17 | disposition home or self-care (01) ==
LOC: DI 14:16
PROVIDERS: ATTEND Registered Nurse
DX: Z78.0 Asymptomatic menopausal state (principal)

== ENCOUNTER 2021-02-06 08:00 | Outpatient (CLI) | payer OTHER ==
[2021-02-06 20:04] LABS: BASOPHILS # (AUTO) 0.1 10^3/uL (0.0-0.1); BASOPHILS % (AUTO) 1.3 %; EOSINOPHILS # (AUTO) 0.1 10^3/uL (0.0-0.7); EOSINOPHILS % (AUTO) 1.3 %; HCT - HEMATOCRIT 42.2 % (37.0-47.0); HGB - HEMOGLOBIN 13.5 g/dL (12.0-16.0); LYMPHOCYTES # (AUTO) 1.7 10^3/uL (1.5-3.5); LYMPHOCYTES % (AUTO) 31.8 %; MEAN CORPUSCULAR HEMOGLOBIN 30.3 pg (27.0-31.0); MEAN CORPUSCULAR VOLUME 94.6 fL (81.0-99.0); MEAN PLATELET VOLUME 10.4 fL (7.9-10.8); MONOCYTES # (AUTO) 0.3 10^3/uL (0.0-1.0); MONOCYTES % (AUTO) 5.4 %; NEUTROPHILS # (AUTO) 3.1 10^3/uL (1.5-6.6); NEUTROPHILS % (AUTO) 60.2 %; PLT - PLATELET COUNT 309 10^3/uL (130-450); RED BLOOD COUNT 4.46 10^6/uL (4.20-5.40); RED CELL DISTRIBUTION WIDTH 12.6 % (12.0-15.0); WHITE BLOOD COUNT 5.2 x10^3/uL (4.8-10.8)
[2021-02-06 20:13] LABS: ALBUMIN 4.5 g/dL (3.2-5.5); ALBUMIN/GLOBULIN RATIO 1.4 (1.0-2.2); CALCIUM 9.7 mg/dL (8.5-10.3); MAGNESIUM 2.5 mg/dL (1.7-2.8); POTASSIUM 3.9 mmol/L (3.5-5.0); TOTAL PROTEIN 7.8 g/dL (6.7-8.2)
[2021-02-06 20:30] LABS: THYROID STIMULATING HORMONE 1.61 uIU/mL (0.34-5.60)
== END 2021-02-06 23:59 | disposition home or self-care (01) ==
LOC: LAB.S 08:00
PROVIDERS: ATTEND Physician Assistant Medical
DX: I49.9 Cardiac arrhythmia, unspecified (principal)
CPT/HCPCS: 36415; 80053; 83735; 84443; 85025

== ENCOUNTER 2021-07-06 08:47 | Outpatient (CLI) | payer OTHER ==
[2021-07-06 14:54] LABS: CHOL/HDL RATIO 2.9 (<4.4); CHOLESTEROL 200 mg/dL; HDL CHOLESTEROL 70 mg/dL; LDL CHOLESTEROL,CALCULATED 107 mg/dL; LDL/HDL RATIO 1.5 (<4.4); TRIGLYCERIDES 113 mg/dL; VLDL CHOLESTEROL 23 mg/dL
== END 2021-07-06 08:48 | disposition home or self-care (01) ==
LOC: LAB.S 08:47
PROVIDERS: ATTEND Internal Medicine Cardiovascular Disease
DX: E78.5 Hyperlipidemia, unspecified (principal)
CPT/HCPCS: 36415; 80061; 83721

== ENCOUNTER 2022-05-11 12:17 | Outpatient (CLI) | payer OTHER ==
[2022-05-11 14:57] LABS: BASOPHILS % (AUTO) 0.9 %; EOSINOPHILS # (AUTO) 0.1 10^3/uL (0.0-0.7); EOSINOPHILS % (AUTO) 1.8 %; HCT - HEMATOCRIT 40.3 % (37.0-47.0); HGB - HEMOGLOBIN 12.8 g/dL (12.0-16.0); LYMPHOCYTES # (AUTO) 1.8 10^3/uL (1.5-3.5); LYMPHOCYTES % (AUTO) 38.5 %; MEAN CORPUSCULAR HEMOGLOBIN 29.2 pg (27.0-31.0); MEAN CORPUSCULAR HGB CONC 31.8 g/dL (32.0-36.0); MEAN CORPUSCULAR VOLUME 91.8 fL (81.0-99.0); MEAN PLATELET VOLUME 9.8 fL (7.9-10.8); MONOCYTES # (AUTO) 0.3 10^3/uL (0.0-1.0); NEUTROPHILS # (AUTO) 2.3 10^3/uL (1.5-6.6); NEUTROPHILS % (AUTO) 51.6 %; PLT - PLATELET COUNT 250 10^3/uL (130-450); RED BLOOD COUNT 4.39 10^6/uL (4.20-5.40); RED CELL DISTRIBUTION WIDTH 12.4 % (12.0-15.0); WHITE BLOOD COUNT 4.5 x10^3/uL (4.8-10.8)
[2022-05-11 15:18] LABS: ALBUMIN 4.5 g/dL (3.2-5.5); ALBUMIN/GLOBULIN RATIO 1.6 (1.0-2.2); BILIRUBIN,TOTAL 1.4 mg/dL (0.2-1.0); CALCIUM 9.7 mg/dL (8.5-10.3); CREATININE 1.2 mg/dL (0.4-1.0); POTASSIUM 4.1 mmol/L (3.5-5.0); TOTAL PROTEIN 7.4 g/dL (6.7-8.2)
[2022-05-11 15:23] LABS: THYROID STIMULATING HORMONE 1.2 uIU/mL (0.34-5.60)
== END 2022-05-11 12:18 | disposition home or self-care (01) ==
LOC: LAB.S 12:17
PROVIDERS: ATTEND Registered Nurse
DX: I10 Essential (primary) hypertension (principal); E78.5 Hyperlipidemia, unspecified; Z79.899 Other long term (current) drug therapy
CPT/HCPCS: 36415; 80053; 84443; 85025

== ENCOUNTER 2022-06-15 13:27 | Outpatient (CLI) | payer OTHER ==
--- NOTE | 2022-06-15 16:10 | Ultrasound Report ---
PROCEDURE: Retroperitoneal INDICATIONS: CKD TECHNIQUE: Real-time scanning was performed of the retroperitoneal organs, with image documentation. COMPARISON: None. FINDINGS: Kidneys: Kidneys are normal in size. Right kidney measures 8.5 cm long; left kidney measures 10 cm long. Right renal cortical thickness is 1 cm; left renal cortical thickness is 1 cm. No solid unruly s, hydronephrosis, or nephrolithiasis. Bladder: Pre-void bladder volume is 271 mL. Post-void residual is 18 mL. Pre-void images demonstra te no intraluminal masses or stones. On pre-void images, both ureteral jets are noted with color Dop pler interrogation. (Of note, ureteral jets may not be detectable in up to 25% of cases due to insuf ficient differences in specific gravity between ureteral and bladder urine). Miscellaneous: No free abdominal fluid. Mildly echogenic liver, likely indicating mild hepatic stea tosis. IMPRESSION: No significant post void residual. Normal sonographic appearance of the kidneys. Reviewed by: Rayray Lau on 06/15/2022 4:09 PM [facility] Approved by: Rayray Lau on 06/15/2022 4:09 PM [facility] Station ID: [id number]
== END 2022-06-15 13:28 | disposition home or self-care (01) ==
LOC: DI 13:27
PROVIDERS: ATTEND Registered Nurse
DX: N18.9 Chronic kidney disease, unspecified (principal); R53.83 Other fatigue

== ENCOUNTER 2022-08-14 10:35 | Outpatient (CLI) | payer OTHER ==
[2022-08-14 15:08] LABS: POTASSIUM 4.2 mmol/L (3.5-5.0)
== END 2022-08-14 10:36 | disposition home or self-care (01) ==
LOC: LAB.S 10:35
PROVIDERS: ATTEND Registered Nurse
DX: N18.9 Chronic kidney disease, unspecified (principal)
CPT/HCPCS: 36415; 80048

== ENCOUNTER 2022-10-09 10:01 | Outpatient (CLI) | payer OTHER ==
--- NOTE | 2022-10-10 09:19 | Mammography Report ---
BILATERAL DIGITAL SCREENING MAMMOGRAM 3D/2D: 10/09/2022 CLINICAL: Routine screening. Family history of breast cancer. Comparison is made to exams dated: 08/23/2020 mammogram, 06/25/2019 mammogram, and 12/10/2016 mammogram - [facility]. There are scattered areas of fibroglandular density in both breasts (category b / 25%-50% glandular t issue). No significant masses, calcifications, or other findings are seen in either breast. There has been no significant interval change. IMPRESSION: NEGATIVE There is no mammographic evidence of malignancy. A 1 year screening mammogram is recommended. Based on the Tyrer Cuzick model (a risk assessment model) the patients lifetime risk is 5.3% and her 10 year risk is 2.0%. According to the ACR, ACS, and NCCN guidelines, an annual breast MRI exam judith g with mammogram is recommended if the patients lifetime risk is 20% or greater. This exam was interpreted at Station ID: [id number]. NOTE: For mammograms, a report in lay terms will be sent to the patient. Approximately 15% of breast malignancies will not be visualized mammographically. In the management of a palpable breast mass, a negative mammogram must not discourage biopsy of a clinically suspicious lesion. Electronically Signed By: Gumaro olea/samanta:10/09/2022 15:27:15 letter sent: No_Letter ACR BI-RADS Category 1: Negative 3341F PARENCHYMAL PATTERN: (A) - The breast(s) demonstrate(s) scattered fibroglandular densities. BI-RADS CATEGORY: (1) - 1 Mammogram [id number] 1 year screening LATERALITY: (B)
== END 2022-10-09 10:02 | disposition home or self-care (01) ==
LOC: DI.S 10:01
PROVIDERS: ATTEND Registered Nurse
DX: Z12.31 Encounter for screening mammogram for malignant neoplasm of breast (principal); Z80.3 Family history of malignant neoplasm of breast

== ENCOUNTER 2022-12-06 10:21 | Outpatient (CLI) | payer OTHER ==
[2022-12-06 14:38] LABS: BUN - BLOOD UREA NITROGEN 14 mg/dL (6-20); CALCIUM 9.6 mg/dL (8.5-10.3); CARBON DIOXIDE - CO2 30 mmol/L (21-32); CHLORIDE 105 mmol/L (101-111); CHOL/HDL RATIO 3.1 (<4.4); CHOLESTEROL 218 mg/dL; CREATININE 1.1 mg/dL (0.6-1.3); GFR - MDRD 51 (>89); GLUCOSE 95 mg/dL (74-104); HDL CHOLESTEROL 70 mg/dL; LDL CHOLESTEROL,CALCULATED 119 mg/dL; LDL/HDL RATIO 1.7 (<4.4); SODIUM 139 mmol/L (135-145); TRIGLYCERIDES 144 mg/dL (48-352); VLDL CHOLESTEROL 29 mg/dL
== END 2022-12-06 10:22 | disposition home or self-care (01) ==
LOC: LAB.S 10:21
PROVIDERS: ATTEND Registered Nurse
DX: N18.9 Chronic kidney disease, unspecified (principal); Z13.220 Encounter for screening for lipoid disorders
CPT/HCPCS: 36415; 80048; 80061; 83721

== ENCOUNTER 2023-05-16 11:02 | Outpatient (CLI) | payer OTHER ==
[2023-05-16 14:44] LABS: BASOPHILS % (AUTO) 0.7 %; EOSINOPHILS # (AUTO) 0.1 10^3/uL (0.0-0.7); EOSINOPHILS % (AUTO) 1.2 %; HGB - HEMOGLOBIN 12.6 g/dL (12.0-16.0); LYMPHOCYTES # (AUTO) 1.7 10^3/uL (1.5-3.5); LYMPHOCYTES % (AUTO) 40.4 %; MEAN CORPUSCULAR HEMOGLOBIN 30.9 pg (27.0-31.0); MEAN CORPUSCULAR HGB CONC 33.2 g/dL (32.0-36.0); MEAN CORPUSCULAR VOLUME 93.1 fL (81.0-99.0); MEAN PLATELET VOLUME 9.9 fL (7.9-10.8); MONOCYTES # (AUTO) 0.3 10^3/uL (0.0-1.0); MONOCYTES % (AUTO) 7.3 %; NEUTROPHILS # (AUTO) 2.1 10^3/uL (1.5-6.6); NEUTROPHILS % (AUTO) 50.2 %; PLT - PLATELET COUNT 256 10^3/uL (130-450); RED BLOOD COUNT 4.08 10^6/uL (4.20-5.40); RED CELL DISTRIBUTION WIDTH 12.6 % (12.0-15.0); WHITE BLOOD COUNT 4.1 x10^3/uL (4.8-10.8)
[2023-05-16 15:51] LABS: THYROID STIMULATING HORMONE 1.04 uIU/mL (0.34-5.60)
[2023-05-16 15:59] LABS: ALBUMIN 4.3 g/dL (3.2-5.5); ALBUMIN/GLOBULIN RATIO 1.4 (1.0-2.2); ALKALINE PHOSPHATASE 84 IU/L (42-121); ALT ALANINE AMINOTRANSFERASE 33 IU/L (10-60); AST ASPARTATE AMINOTRANSFERASE 27 IU/L (10-42); BILIRUBIN,TOTAL 0.9 mg/dL (0.2-1.0); BUN - BLOOD UREA NITROGEN 18 mg/dL (6-20); CALCIUM 9.6 mg/dL (8.5-10.3); CARBON DIOXIDE - CO2 31 mmol/L (21-32); CHLORIDE 102 mmol/L (101-111); CHOL/HDL RATIO 3.7 (<4.4); CHOLESTEROL 243 mg/dL; CREATININE 1.1 mg/dL (0.6-1.3); GFR - MDRD 51 (>89); GLUCOSE 93 mg/dL (74-104); HDL CHOLESTEROL 65 mg/dL; LDL CHOLESTEROL,CALCULATED 150 mg/dL; LDL/HDL RATIO 2.3 (<4.4); POTASSIUM 3.7 mmol/L (3.5-4.5); SODIUM 139 mmol/L (135-145); TOTAL PROTEIN 7.3 g/dL (6.4-8.9); TRIGLYCERIDES 140 mg/dL (48-352); VLDL CHOLESTEROL 28 mg/dL
== END 2023-05-16 11:03 | disposition home or self-care (01) ==
LOC: LAB.S 11:02
PROVIDERS: ATTEND Registered Nurse
DX: Z13.220 Encounter for screening for lipoid disorders (principal); Z13.29 Encounter for screening for other suspected endocrine disorder; Z79.899 Other long term (current) drug therapy
CPT/HCPCS: 36415; 80053; 80061; 83721; 84443; 85025

== ENCOUNTER 2023-07-02 11:42 | Outpatient (CLI) | payer OTHER ==
[2023-07-02 15:16] LABS: EOSINOPHILS # (AUTO) 0.1 10^3/uL (0.0-0.7); EOSINOPHILS % (AUTO) 1.2 %; HCT - HEMATOCRIT 41.3 % (37.0-47.0); HGB - HEMOGLOBIN 13.1 g/dL (12.0-16.0); LYMPHOCYTES # (AUTO) 1.6 10^3/uL (1.5-3.5); LYMPHOCYTES % (AUTO) 38.2 %; MEAN CORPUSCULAR HEMOGLOBIN 29.6 pg (27.0-31.0); MEAN CORPUSCULAR HGB CONC 31.7 g/dL (32.0-36.0); MEAN CORPUSCULAR VOLUME 93.2 fL (81.0-99.0); MEAN PLATELET VOLUME 10.4 fL (7.9-10.8); MONOCYTES # (AUTO) 0.3 10^3/uL (0.0-1.0); NEUTROPHILS # (AUTO) 2.2 10^3/uL (1.5-6.6); NEUTROPHILS % (AUTO) 52.4 %; PLT - PLATELET COUNT 276 10^3/uL (130-450); RED BLOOD COUNT 4.43 10^6/uL (4.20-5.40); RED CELL DISTRIBUTION WIDTH 12.4 % (12.0-15.0); WHITE BLOOD COUNT 4.2 x10^3/uL (4.8-10.8)
[2023-07-02 16:37] LABS: ALBUMIN 4.5 g/dL (3.2-5.5); PHOSPHORUS 3.1 mg/dL (2.5-5.0); URIC ACID 4.5 mg/dL (2.3-6.6)
[2023-07-02 16:49] LABS: CREATININE,URINE 222.7 mg/dL; PROTEIN/CREATININE RATIO,URINE 0.1 (<=0.2)
[2023-07-02 17:14] LABS: CALCIUM 9.7 mg/dL (8.5-10.3); CREATININE 1.1 mg/dL (0.6-1.3); POTASSIUM 3.5 mmol/L (3.5-4.5)
[2023-07-03 08:11] LABS: HBsAG SCREEN Negative (Negative)
== END 2023-07-02 11:43 | disposition home or self-care (01) ==
LOC: LAB.S 11:42
PROVIDERS: ATTEND Internal Medicine Nephrology
DX: I12.9 Hypertensive chronic kidney disease with stage 1 through stage 4 chronic kidney disease, or unspecified chronic kidney disease (principal); N18.31 Chronic kidney disease, stage 3a
CPT/HCPCS: 36415; 80069; 82570; 84156; 84550; 85025; 85651; 86160; 86704; 86803; 87340

== ENCOUNTER 2023-11-18 11:45 | Outpatient (CLI) | payer OTHER ==
[2023-11-18 15:33] LABS: ESTIMATED AVERAGE GLUCOSE 103 mg/dL (70-100); HEMOGLOBIN A1c% 5.2 % (4.27-6.07)
[2023-11-18 16:00] LABS: CALCIUM 9.8 mg/dL (8.5-10.3); POTASSIUM 3.6 mmol/L (3.5-4.5)
[2023-11-18 16:08] LABS: CREATININE,URINE 129.2 mg/dL
[2023-11-18 16:17] LABS: MICROALBUMIN,URINE < 0.7 mg/dL
== END 2023-11-18 11:46 | disposition home or self-care (01) ==
LOC: LAB.S 11:45
PROVIDERS: ATTEND Registered Nurse
DX: R73.9 Hyperglycemia, unspecified (principal)
CPT/HCPCS: 36415; 80048; 82043; 82570; 83036

== ENCOUNTER 2023-12-27 09:36 | Outpatient (CLI) | payer OTHER ==
[2023-12-27 15:09] LABS: BASOPHILS % (AUTO) 0.6 %; EOSINOPHILS # (AUTO) 0.1 10^3/uL (0.0-0.7); EOSINOPHILS % (AUTO) 1.3 %; HCT - HEMATOCRIT 40.7 % (37.0-47.0); HGB - HEMOGLOBIN 12.9 g/dL (12.0-16.0); LYMPHOCYTES # (AUTO) 1.8 10^3/uL (1.5-3.5); MEAN CORPUSCULAR HEMOGLOBIN 29.9 pg (27.0-31.0); MEAN CORPUSCULAR HGB CONC 31.7 g/dL (32.0-36.0); MEAN CORPUSCULAR VOLUME 94.4 fL (81.0-99.0); MEAN PLATELET VOLUME 10.4 fL (7.9-10.8); MONOCYTES # (AUTO) 0.3 10^3/uL (0.0-1.0); MONOCYTES % (AUTO) 7.2 %; NEUTROPHILS # (AUTO) 2.5 10^3/uL (1.5-6.6); NEUTROPHILS % (AUTO) 52.7 %; PLT - PLATELET COUNT 271 10^3/uL (130-450); RED BLOOD COUNT 4.31 10^6/uL (4.20-5.40); RED CELL DISTRIBUTION WIDTH 13.1 % (12.0-15.0); WHITE BLOOD COUNT 4.7 x10^3/uL (4.8-10.8)
[2023-12-27 16:08] LABS: ALBUMIN 4.1 g/dL (3.2-5.5); CALCIUM 9.2 mg/dL (8.5-10.3); CREATININE 1.1 mg/dL (0.6-1.3); PHOSPHORUS 2.9 mg/dL (2.5-5.0); POTASSIUM 3.6 mmol/L (3.5-4.5); URIC ACID 3.2 mg/dL (2.3-6.6)
[2023-12-27 17:13] LABS: CREATININE,URINE 102.9 mg/dL
[2023-12-27 17:21] LABS: MICROALBUMIN,URINE < 0.7 mg/dL
== END 2023-12-27 09:37 | disposition home or self-care (01) ==
LOC: LAB.S 09:36
PROVIDERS: ATTEND Registered Nurse
DX: Z01.818 Encounter for other preprocedural examination (principal); N18.9 Chronic kidney disease, unspecified
CPT/HCPCS: 36415; 80069; 82043; 82570; 84550; 85025; 85651

== ENCOUNTER 2024-01-06 12:00 | Outpatient (CLI) | payer OTHER ==
--- NOTE | 2024-01-08 15:32 | Mammography Report ---
BILATERAL DIGITAL SCREENING MAMMOGRAM 3D/2D: 01/06/2024 CLINICAL: Routine screening. Family history of breast cancer. Comparison is made to exams dated: 10/09/2022 mammogram, 06/25/2019 mammogram, 08/23/2020 mammogram, 12/10 mammogram, and 04/10/2012 mammogram - [facility]. There are scattered areas of fibroglandular density (category b / 25%-50% glandular tissue). No significant masses, calcifications, or other findings are seen in either breast. There has been no significant interval change. IMPRESSION: NEGATIVE There is no mammographic evidence of malignancy. A 1 year screening mammogram is recommended. Based on the Tyrer Cuzick model (a risk assessment model) the patient's lifetime risk is 5.2% and her 10 year risk is 2.1%. According to the ACR, ACS, and NCCN guidelines, an annual breast MRI exam judith g with mammogram is recommended if the patient's lifetime risk is 20% or greater. This exam was interpreted at Station ID: [id number]. NOTE: For mammograms, a report in lay terms will be sent to the patient. Approximately 15% of breast malignancies will not be visualized mammographically. In the management of a palpable breast mass, a negative mammogram must not discourage biopsy of a clinically suspicious lesion. Electronically Signed By: Abida Adams M.D., Ph.D. eb/penrad:01/07/2024 12:37:53 ACR BI-RADS Category 1: Negative 3341F PARENCHYMAL PATTERN: (A) - The breast(s) demonstrate(s) scattered fibroglandular densities. BI-RADS CATEGORY: (1) - 1 RECOMMENDATION: (ANNUAL) - Recommend routine annual screening mammography. [id number] 1 year screening LATERALITY: (B)
== END 2024-01-06 12:01 | disposition home or self-care (01) ==
LOC: DI.S 12:00
PROVIDERS: ATTEND Registered Nurse
DX: Z12.31 Encounter for screening mammogram for malignant neoplasm of breast (principal); Z80.3 Family history of malignant neoplasm of breast